=== PATIENT | female | born 1965 ===

== ENCOUNTER → 2023-08-01 10:30 | Outpatient (REF) | payer MEDICARE, SELFPAY ==
[2023-08-01 12:01] LABS: Digoxin < 0.4 ng/ml (0.8-2.0)
== END ==
LOC: OLABN 10:30
PROVIDERS: ATTENDING PHYSICIAN Student in an Organized Health Care Education/Training Program
DX: I47.20 Ventricular tachycardia, unspecified (principal)
CPT/HCPCS: 36415; 80162

== ENCOUNTER → 2023-08-08 09:05 | Outpatient (REF) | payer MEDICARE, SELFPAY ==
[2023-08-08 12:12] LABS: Blood Urea Nitrogen 13 mg/dl (7-17); Calcium 9.1 mg/dl (8.4-10.2); Carbon Dioxide 28 mmol/L (22-30); Chloride 109 mmol/L (98-107); Glucose 81 mg/dl (70-99); Potassium 4.9 mmol/L (3.5-5.1); Sodium 140 mmol/L (135-145); eGFR > 60.00
[2023-08-08 12:20] LABS: Digoxin < 0.4 ng/ml (0.8-2.0)
== END ==
LOC: OLABN 09:05
PROVIDERS: ATTENDING PHYSICIAN Student in an Organized Health Care Education/Training Program
DX: I47.20 Ventricular tachycardia, unspecified (principal)
CPT/HCPCS: 36415; 80048; 80162

== ENCOUNTER → 2023-08-15 10:09 | Outpatient (REF) | payer MEDICARE, SELFPAY ==
[2023-08-15 12:00] LABS: Digoxin < 0.4 ng/ml (0.8-2.0)
== END ==
LOC: OLABN 10:09
PROVIDERS: ATTENDING PHYSICIAN Student in an Organized Health Care Education/Training Program
DX: I47.20 Ventricular tachycardia, unspecified (principal)
CPT/HCPCS: 36415; 80162

== ENCOUNTER → 2024-07-06 12:22 | Outpatient (REF) | payer MEDICARE, SELFPAY ==
[2024-07-06 15:43] LABS: Digoxin < 0.4 ng/ml (0.8-2.0)
== END ==
LOC: OLABN 12:22
PROVIDERS: ATTENDING PHYSICIAN Student in an Organized Health Care Education/Training Program
DX: I47.20 Ventricular tachycardia, unspecified (principal)
CPT/HCPCS: 36415; 80162